=== PATIENT | female | born 1965 | race Caucasian/White ===

== ENCOUNTER → 2019-05-27 | Outpatient (CLI) | payer OTHER ==
--- NOTE | 2019-05-27 12:23 | RADIOLOGY REPORT (SQ) ---
EXAM DESCRIPTION: MRI RT LOWER JOINT WITHOUT COMPLETED DATE/TIME: 05/27/2019 10:49 am REASON FOR STUDY: UNSPECIFIED INJURY OF RIGHT ACHILLES TENDON, INIT ENCNTR S86.001A UNSPECIFIED INJ URY OF RIGHT ACHILLES TENDON, INIT E COMPARISON: None. TECHNIQUE: Right ankle images acquired and stored on PACS. Multiplanar images include fat sensitive sequences as T1, fluid sensitive sequences as FST2/STIR, cartilage sensitive sequences as FSPD, and g radient echo sequences. LIMITATIONS: None. FINDINGS: BONE MARROW: No alteration of signal to suggest marrow replacement or edema. No occult fra cture. No large osteophytes. EFFUSIONS: No subtalar or tibiotalar effusions. No loose bodies. OSSEOUS ARTICULATIONS: Normal tibiotalar, subtalar, talonavicular and calcaneocuboid joints. TALAR DOME AND TIBIAL PLAFOND: Normal cartilage. No osteochondral defect. ACHILLES TENDON: Intact without partial or full-thickness tear. No adjacent bursal fluid or edema. TIBIALIS ANTERIOR TENDON: Intact without edema at the 1st MT attachment. TIBIALIS POSTERIOR TENDON: Normal morphology and no edema at the navicular attachment. No tendon [place] th fluid. FLEXOR HALLUCIS LONGUS AND FLEXOR DIGITORUM TENDONS: Normal morphology and no tendon sheath fluid. No edema of the os trigonum. PERONEUS LONGUS AND BREVIS TENDON: Peroneus longus is intact. There is tendinopathy with increased i ntrinsic signal along the peroneus brevis tendon with a possible tiny longitudinal split at and just distal to the level of the lateral malleolus. This is best shown on axial series 7, images 11-16. T race tendon sheath fluid ATFL, CFL, PTFL: Intact. No thickening or signal alteration. No adelaida-ligamentous fluid. DELTOID LIGAMENT: Visualized components intact. TARSAL TUNNEL: No masses. No muscle atrophy. SINUS TARSI: No fluid. No reactive marrow edema or erosions. PLANTAR FASCIA: No signal alteration or tear. ADJACENT SOFT TISSUES: No masses. OTHER: No other significant finding. 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 TECHNICAL DOCUMENTATION: JOB ID: [id number] [employer]- All Rights Reserved Reading location - IP[facility]workstation name: [email or web address]
== END ==
LOC: RAD 10:16
PROVIDERS: ATTEND Orthopaedic Surgery
DX: S86.001A Unspecified injury of right Achilles tendon, initial encounter (principal); X58.XXXA Exposure to other specified factors, initial encounter